=== PATIENT | female | born 1960 | race Caucasian/White ===

== ENCOUNTER 2019-04-15 21:12 | Emergency (ER) | payer MEDICARE | END 2019-04-15 22:30 | disposition home or self-care (01) | LOC: ERS 21:12 | DX: J20.9 Acute bronchitis, unspecified (principal); F17.210 Nicotine dependence, cigarettes, uncomplicated | CPT/HCPCS: 99283 ==

== ENCOUNTER 2019-05-23 17:55 | Emergency (ER) | payer MEDICARE ==
[~2019-05-23 17:55] MED LIST: ISOVUE-370 76%-LOCM 1 ML ONE
[2019-05-23] MEDS ORDERED: Ketorolac Tromethamine 30 MG/ML VIAL ONE (18:37)
[2019-05-23 18:53] LABS: #Lymphocytes 2.3 thou/uL (1.20-3.40); #Monocytes 0.5 thou/uL (0.11-0.59); #Neutrophils 4.8 thou/uL (1.40-6.50); %Basophils 0.5 % (0.0-1.0); %Eosinophils 0.4 % (0.0-10.0); %Lymphocytes 29.8 % (21.0-51.0); %Monocytes 6.3 % (0.0-10.0); Hemoglobin 13.8 g/dL (12.0-16.0); Mean Corpuscular Hemoglobin 33.2 pg (27.0-31.0); Mean Corpuscular Volume 97.5 fL (78.0-98.0); Mean Platelet Volume 8.9 fL (7.4-10.4); Platelet Count 241 thou/uL (130-400); RBC Distribution Width 12.3 % (11.5-14.5); Red Blood Cell (RBC) Count 4.16 mill/uL (4.20-5.40); White Blood Cell (WBC) Count 7.7 thou/uL (4.8-10.8)
[2019-05-23 19:16] LABS: ALT (SGPT) 22 U/L (8-55); AST (SGOT) 17 U/L (5-34); Albumin 4.3 g/dL (3.5-5.0); Alkaline Phosphatase 94 U/L (40-110); Anion Gap 16 mmol/L (10-20); BUN (Urea Nitrogen) 9 mg/dL (9.8-20.1); Bilirubin, Total 0.3 mg/dL (0.2-1.2); Calc. Creatinine Clearance 0 mL/min (70-130); Calcium 9.7 mg/dL (7.8-10.44); Carbon Dioxide 25 mmol/L (22-29); Chloride 103 mmol/L (98-107); Estimated GFR-MDRD 78; Glucose 89 mg/dL (70-105); Potassium 3.7 mmol/L (3.5-5.1); Protein, Total 7.3 g/dL (6.0-8.3); Sodium 140 mmol/L (136-145)
--- NOTE | 2019-05-23 19:21 | RAD ---
PORTABLE CHEST: 05/23/19 HISTORY: Cough and back pain. Heart size and mediastinum are within normal limits. The lungs are clear of infiltrates. No significa nt bony findings. IMPRESSION: No active intrathoracic disease. POS: [facility]
[2019-05-23 19:25] LABS: Bacteria/HPF None Seen HPF (None Seen); Bilirubin Negative (Negative); Blood, Urine Negative (Negative); Clarity Clear (Clear); Glucose, Urine (Dipstick) Normal (Negative); Leukocyte 25 Leu/uL (Negative); Nitrite Negative (Negative); Protein, Urine (Dipstick) Negative (Neg-Trace); RBC/HPF 0-3 HPF (0-3); Squamous Epithelial 0-3 HPF (0-3); Urobilinogen Normal mg/dL (Less than 2); WBC/HPF 0-3 HPF (0-3)
[2019-05-23] MEDS ORDERED: traMADol HCl 50 MG TAB ONE (20:49)
--- NOTE | 2019-05-23 20:57 | CT ---
CT angiogram of chest and abdomen performed with intravenous contrast enhancement with 3-D reconstruc tions HISTORY: Mid back pain. COMPARISON: None. FINDINGS: The lungs show a mixture of groundglass opacity and areas which appear to represent air tra pping. No confluent infiltrative process is seen. No pleural effusion. No significant mediastinal or hilar adenopathy. The pulmonary arteries are fairly well opacified and show no evidence for pulmonary embolus. The thoracic aorta is normal in caliber. A small hiatal hernia is present. The liver spleen and pancreas regions appear unremarkable on this a ngiographic phase exam. The gallbladder has been removed. The right and left adrenal glands are normal. There is cortical scarring involving the left kidney. No obstruction. The abdominal aorta is normal in caliber no dissection. No stenosis. The superior mesenteric and infe rior mesenteric arteries are patent without stenosis. The celiac artery is normal. Renal arteries are also unremarkable. IMPRESSION: No evidence of aortic aneurysm or dissection
== END 2019-05-23 22:00 | disposition home or self-care (01) ==
LOC: ERS 17:55
DX: J18.9 Pneumonia, unspecified organism (principal); F41.9 Anxiety disorder, unspecified; F32.9 Major depressive disorder, single episode, unspecified; F43.10 Post-traumatic stress disorder, unspecified; F17.210 Nicotine dependence, cigarettes, uncomplicated
CPT/HCPCS: 36415; 71045; 71275; 72191; 74175; 80053; 81003; 81015; 85025; 96372; J1885; Q9966

== ENCOUNTER 2019-06-18 10:03 | Outpatient (CLI) | payer MEDICARE ==
--- NOTE | 2019-06-18 10:42 | BD ---
EXAM: DEXA bone density examination HISTORY: 59-year-old postmenopausal female for screening COMPARISON: None FINDINGS: L1--bone mineral density 0.894 g/sq cm; T score -0.9 L2--bone mineral density 0.956 g/sq cm; T score -0.7 L3--bone mineral density 0.940 g/sq cm; T score -1.3 L4--bone mineral density 0.893 g/sq cm; T score -1.5 Total L1-L4--bone mineral density 0.921 g/sq cm; T score -1.1 Left femoral neck--bone mineral density0.789; T score -0.5 Total proximal left femur--bone mineral density 1.004; T score 0.5 IMPRESSION: Osteopenia.
--- NOTE | 2019-06-30 16:23 | MMO ---
Bilateral MAMMO Bilat Screen [facility]. CLINICAL HISTORY: Patient is 59 years old and is seen for screening. The patient has the following family history of breast cancer: maternal aunt, malignant (generic) and paternal aunt, malignant (generic). The patient has no personal history of cancer. VIEWS: The views performed were: bilateral craniocaudal with tomosynthesis; bilateral mediolateral oblique with tomosynthesis; and right craniocaudal. FILMS COMPARED: The present examination has been compared to a prior imaging study performed at [facility] on 04/09/2015. This study has been interpreted with the assistance of computer-aided detection. MAMMOGRAM FINDINGS: There are scattered fibroglandular densities. There are no suspicious masses, suspicious calcifications, or new areas of architectural distortion. IMPRESSION: THERE IS NO MAMMOGRAPHIC EVIDENCE OF MALIGNANCY. A ROUTINE FOLLOW-UP MAMMOGRAM IN 1 YEAR IS RECOMMENDED. THE RESULTS OF THIS EXAM WERE SENT TO THE PATIENT. ACR BI-RADS Category 1 - Negative MAMMOGRAPHY NOTE: 1. A negative mammogram report should not delay a biopsy if a dominant of clinically suspicious mass is present. 2. Approximately 10% to 15% of breast cancers are not detected by mammography. 3. Adenosis and dense breasts may obscure an underlying neoplasm. Reported by: SHAWN SHORT MD Electonically Signed: [id number]
== END 2019-06-18 10:04 | disposition home or self-care (01) ==
LOC: BICMAMMO 10:03
PROVIDERS: ATTEND Family Medicine
DX: Z12.31 Encounter for screening mammogram for malignant neoplasm of breast (principal); Z13.820 Encounter for screening for osteoporosis; M85.80 Other specified disorders of bone density and structure, unspecified site; Z80.3 Family history of malignant neoplasm of breast
CPT/HCPCS: 77063; 77067; 77080

== ENCOUNTER 2019-06-27 08:30 | Outpatient (CLI) | payer MEDICARE ==
--- NOTE | 2019-06-27 11:07 | RAD ---
THORACIC SPINE THREE VIEWS: HISTORY: Back pain. FINDINGS: No fracture, subluxation or bony destruction is seen. There are mild degenerative changes in the thor acic spine. POS: [facility]
== END 2019-06-27 08:31 | disposition home or self-care (01) ==
LOC: BICRAD 08:30
PROVIDERS: ATTEND Family Medicine
DX: M54.9 Dorsalgia, unspecified (principal); M47.814 Spondylosis without myelopathy or radiculopathy, thoracic region
CPT/HCPCS: 36415; 72070; 80053; 80061; 86803

== ENCOUNTER 2020-08-03 10:05 | Observation (INO) | payer MEDICARE ==
--- NOTE | 2020-08-03 10:41 | RAD ---
XR Chest 1 View Portable History: Chest pain Comparison: Radiograph 2019 Findings: Lungs are clear. No pneumothorax or effusion. Cardiac silhouette and mediastinal contours a re within normal limits. No acute osseous abnormality. Impression: No acute intrathoracic abnormality.
[2020-08-03 10:45] LABS: #Basophils 0.1 thou/uL (0.0-0.2); #Lymphocytes 2.4 thou/uL (1.20-3.40); #Monocytes 0.5 thou/uL (0.11-0.59); #Neutrophils 3.6 thou/uL (1.40-6.50); %Eosinophils 0.4 % (0.0-10.0); %Monocytes 6.9 % (0.0-10.0); %Neutrophils 54.7 % (42.0-75.0); Mean Corpuscular HGB CONC 32.8 g/dL (32.0-36.0); Mean Corpuscular Hemoglobin 32.4 pg (27.0-31.0); Mean Corpuscular Volume 98.9 fL (78.0-98.0); Mean Platelet Volume 8.6 fL (7.4-10.4); Platelet Count 230 thou/uL (130-400); RBC Distribution Width 11.8 % (11.5-14.5); Red Blood Cell (RBC) Count 4.32 mill/uL (4.20-5.40); White Blood Cell (WBC) Count 6.5 thou/uL (4.8-10.8)
[2020-08-03 11:13] LABS: ALT (SGPT) 21 U/L (8-55); AST (SGOT) 12 U/L (5-34); Alkaline Phosphatase 106 U/L (40-110); Anion Gap 13 mmol/L (10-20); BUN (Urea Nitrogen) 8 mg/dL (9.8-20.1); Bilirubin, Total 0.2 mg/dL (0.2-1.2); Calc. Creatinine Clearance 0 mL/min (70-130); Carbon Dioxide 26 mmol/L (22-29); Chloride 106 mmol/L (98-107); Globulin 2.7 g/dL (2.4-3.5); Glucose 80 mg/dL (70-105); Potassium 4.2 mmol/L (3.5-5.1); Protein, Total 6.7 g/dL (6.0-8.3)
[2020-08-03] MEDS ORDERED: Aspirin Chewable 81 MG TAB ONE (11:23)
[2020-08-03] MEDS ORDERED: Acetaminophen 500 MG TAB ONE (11:23)
[2020-08-03] MEDS ORDERED: Nitroglycerin 2% Ointment 1 INCH/1 GM Packet ONE (11:23)
[2020-08-03 11:37] LABS: Sodium 141 mmol/L (136-145)
[2020-08-03] MEDS ORDERED: Senokot S 8.6-50 MG TAB PO PRN (13:23)
[2020-08-03] MEDS ORDERED: Ondansetron ODT 4 MG TAB PO PRN (13:23)
--- NOTE | 2020-08-03 14:42 | HP ---
CHIEF COMPLAINT: Chest pain. HISTORY OF PRESENT ILLNESS: A 60-year-old female with a past medical history of PTSD, presenting with the chest pain of three day duration. Mostly sharp in quality. Associated with nausea. No emesis. The patient does have a history of hot flashes. She had a similar episode of chest pain in June 2019 and stress test done which was negative at that time. The pain is mostly in the center of her chest radiating to the side of her neck and shoulder. No recent fever, night sweats, chills, productive cough. No sick exposure. She is a daily smoker about a pack a day. Her initial evaluation showed troponin is negative. EKG showed normal sinus rhythm. The patient received aspirin and nitroglycerin in the ER. The patient will be brought in for risk stratification. REVIEW OF SYSTEMS: 13-point review of systems reviewed with the patient and pertinence addressed in the history of present illness. The rest are negative including no recent fever, chills, productive cough. No abdominal pain, constipation, diarrhea, hematuria, dysuria, or hematochezia. Denies headache, tingling, numbness, weakness in her extremities. No polyuria or polydipsia. No rash. PAST MEDICAL HISTORY: PTSD and anxiety. SURGICAL HISTORY: Colectomy and hysterectomy, history of ectopic . PSYCHIATRIC HISTORY: PTSD, anxiety, depression. She was admitted for an inpatient psych evaluation in 2016. She smokes at least a pack a day. Drinks occasionally. 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 FAMILY HISTORY: Noncontributory. ALLERGIES: SHE IS ALLERGIC TO CODEINE AND SULFATE. PHYSICAL EXAMINATION: VITAL SIGNS: Her temperature is 98.8, pulse 65, blood pressure 135/75, saturating 99% on room air. GENERAL: The patient is alert, oriented, nontoxic appearing. HEENT: Pupils are equal, round, and reactive to light. Anicteric. Mucous membranes moist. CARDIOVASCULAR: Regular rate and rhythm without murmurs, rubs, or gallops. LUNGS: Clear to auscultation bilaterally without wheezing, rales, or rhonchi. ABDOMEN: Soft, nontender, nondistended. Good bowel sounds. EXTREMITIES: Without pitting edema. NEUROLOGICAL: No focal deficits. PSYCHIATRIC: Appropriate mood and affect. DIAGNOSTIC STUDIES: EKG showed sinus bradycardia at 54 beats per minute. No ST-T wave changes. IMPRESSION AND PLAN: This is a 60-year-old female without significant past medical history of PTSD, presenting with chest pain. She will be ruled out with serial troponin, TSH, ANC, lipid panel. Daily aspirin. Follow up with lipid panel. Nuclear medicine stress test in the morning. Keep her n.p.o. after midnight. Job ID: [id number] MTDD
[2020-08-03 15:11] LABS: Troponin I Less than 0.010 ng/mL (< 0.028)
[2020-08-03 15:22] VITALS: BMI 32.8
[2020-08-03 16:53] LABS: Troponin I Less than 0.010 ng/mL (< 0.028)
[2020-08-03] MEDS: Acetaminophen 325 MG TAB PO PRN (16:54)
[2020-08-03] MEDS ORDERED: busPIRone HCl 10 MG TAB PO PRN (18:57)
[2020-08-03] MEDS ORDERED: Melatonin 3 MG TAB PO PRN (18:58)
[2020-08-03] MEDS: buPROPion 75 MG TAB PO SCH (20:28)
[2020-08-04] MEDS: Acetaminophen 325 MG TAB PO PRN (04:57)
[2020-08-04 05:43] LABS: #Basophils 0.1 thou/uL (0.0-0.2); #Lymphocytes 2.6 thou/uL (1.20-3.40); #Monocytes 0.5 thou/uL (0.11-0.59); %Basophils 0.7 % (0.0-1.0); %Eosinophils 0.7 % (0.0-10.0); %Lymphocytes 35.7 % (21.0-51.0); %Monocytes 7.5 % (0.0-10.0); %Neutrophils 55.4 % (42.0-75.0); Anion Gap 13 mmol/L (10-20); BUN (Urea Nitrogen) 17 mg/dL (9.8-20.1); Calc. Creatinine Clearance 102 mL/min (70-130); Calcium 9.1 mg/dL (7.8-10.44); Carbon Dioxide 28 mmol/L (22-29); Cardiac Risk 5.2 (Less than 4.5); Chloride 104 mmol/L (98-107); Cholesterol 213 mg/dl (< 200 Desired); Glucose 91 mg/dL (70-105); HDL Cholesterol 41 mg/dL (>60 Neg Risk); Hemoglobin 12.9 g/dL (12.0-16.0); LDL Cholesterol, Calculated 139 mg/dL; Mean Corpuscular HGB CONC 33.3 g/dL (32.0-36.0); Mean Corpuscular Hemoglobin 32.9 pg (27.0-31.0); Mean Corpuscular Volume 98.7 fL (78.0-98.0); Mean Platelet Volume 8.8 fL (7.4-10.4); Platelet Count 209 thou/uL (130-400); Potassium 4.8 mmol/L (3.5-5.1); Red Blood Cell (RBC) Count 3.93 mill/uL (4.20-5.40); Sodium 140 mmol/L (136-145); Triglycerides 164 mg/dL (Less than 150); White Blood Cell (WBC) Count 7.2 thou/uL (4.8-10.8)
[2020-08-04 06:06] LABS: SARS-CoV-2 MS2 Positive; SARS-CoV-2 N Gene Negative; SARS-CoV-2 S Gene Negative; SARS-CoV-2 by NAA Not Detected (NotDetected); SARS-CoV-2 orf1ab Negative
[2020-08-04] MEDS ORDERED: Aspirin 81 mg Enteric Coated Tablet PO SCH (09:00)
[2020-08-04] MEDS ORDERED: ADENOSINE 60 MG/20 ML VIAL ONE (10:00)
--- NOTE | 2020-08-04 11:20 | NM ---
Exam: Nuclear medicine cardiac stress with wall motion HISTORY: Chest pain TECHNIQUE: Patient was administered 32.50 mCi of technetium 99m sestamibi intravenously Cardiac gating is performed FINDINGS: Stress only images demonstrate homogeneous distribution of the radiotracer End-diastolic volume is 75 mL End-systolic volume is 20 mL Cardiac gating: Normal wall motion and thickening. 73% ejection fraction IMPRESSION: 1. Homogeneous distribution of radiotracer 2. 73% ejection fraction
--- NOTE | 2020-08-04 11:27 | PDOC.DS.DS ---
Provider - Provider Date of Admission: 08/03/20 15:04 Date of Discharge: 08/04/20 Admitting Provider: Lavon Handley MD Primary Care Physician: Kelsey Franz Course - Hospital Course Hospital Course: Patient is a 60 year old female with a PMH of tobacco smoking, obesity, PTSD and anxiety disorder. She was admitted for ACS work up after she presented with chest pain. She underwent a nuclear stress test, which ruled out any active obstructive disease. Her LVEF was 73%. Due to her high 10-year cardiovascular disease risk, I will go ahead and discharge her on moderate intensity statin, along with low dose aspirin. - Labs Lab Results: 08/04/20 04:26 08/04/20 04:26 Abnormal Lab Results - Last 48 hrs 08/03/20 10:24: BUN 8 L 08/03/20 10:24: MCV 98.9 H, MCH 32.4 H 08/04/20 04:26: Triglycerides 164 H, Cholesterol 213 H 08/04/20 04:26: RBC 3.93 L, MCV 98.7 H, MCH 32.9 H - Physical Exam Vitals: Vital Signs (12 hours) Temp Pulse Resp BP Pulse Ox 08/04/20 07:10 97.7 F 48 L 17 114/59 L 98 Weight Weight 185 lb 3.2 oz Physical Exam: The patient was seen and examined on the day of discharge. General: alert and awake, in no acute distress HEENT: AT/NC. EOMi Pulm: lungs are CTA, b/l. No wheezing or crackles CVS: Normal S1S2. RRR Abdomen: soft, NT, ND. Ext: w/o edema. Good ROM in all 4 extremities Skin: warm and well perfused Psych: mood and affect appropriate Problem - Discharge Plan Assessment: Please refer to clinical course Plan - Discharge Medications Prescriptions: Aspirin [Ecotrin Low Strength] 81 mg PO DAILY #30 tab Atorvastatin Calcium [Lipitor] 20 mg PO HS #30 tab Home Medications: Medication Instructions Recorded Confirmed Type Melatonin 10 mg PO HS PRN 08/03/20 08/03/20 History buPROPion [Wellbutrin] 75 mg PO BID 08/03/20 08/03/20 History busPIRone HCl [Buspar] 10 mg PO DAILY PRN 08/03/20 08/03/20 History Aspirin [Ecotrin Low Strength] 81 mg PO DAILY #30 tab 08/04/20 Rx Atorvastatin Calcium [Lipitor] 20 mg PO HS #30 tab 08/04/20 Rx Melatonin 9 mg PO HSPRN PRN tab 08/04/20 Rx buPROPion [Wellbutrin] 75 mg PO BID tab 08/04/20 Rx busPIRone HCl [Buspar] 10 mg PO DAILYPRN PRN tab 08/04/20 Rx Allergies: codeine Allergy (Verified 08/03/20 15:20) meperidine [From Demerol] Allergy (Verified 08/03/20 15:20) morphine Allergy (Verified 08/03/20 15:20) - Follow up Plan Referrals: Kelsey Hernandez PA [Primary Care Provider] - Disposition: HOME Quality - Care Measures CORE MEASURES:: N/A - Stroke/TIA Did you prescribe antithrombotic therapy?: Yes
[2020-08-04] MEDS: buPROPion 75 MG TAB PO SCH (11:29)
[2020-08-04 11:32] VITALS: BP 117/77; TEMP 99.1
[2020-08-04] MEDS ORDERED: Atorvastatin Calcium 20 MG TAB PO SCH (21:00)
--- NOTE | 2020-08-07 14:01 | EKG ---
Test Reason : ANXIETY, CP Blood Pressure : / mmHG Vent. Rate : 054 BPM Atrial Rate : 054 BPM P-R Int : 208 ms QRS Dur : 090 ms QT Int : 424 ms P-R-T Axes : 045 002 045 degrees QTc Int : 402 ms Sinus bradycardia Low voltage QRS Borderline ECG Confirmed by ANGELICA MCCARTNEY DO ([id number]), assistant editor TATO JIMENEZ ([id number]) on 08/07/2020 2:00:44 PM Referred By: Confirmed By:ANGELICA MCCARTNEY DO
== END 2020-08-04 12:55 | disposition home or self-care (01) ==
LOC: ERS 10:05 → 2NO 15:04
PROVIDERS: ADMIT Internal Medicine; ATTEND Internal Medicine
DX: R07.9 Chest pain, unspecified (principal); E66.9 Obesity, unspecified; F43.10 Post-traumatic stress disorder, unspecified; F41.9 Anxiety disorder, unspecified; F32.9 Major depressive disorder, single episode, unspecified; F17.210 Nicotine dependence, cigarettes, uncomplicated; Z68.32 Body mass index [BMI] 32.0-32.9, adult; Z79.899 Other long term (current) drug therapy; Z88.5 Allergy status to narcotic agent; Z88.8 Allergy status to other drugs, medicaments and biological substances; Z20.822 Contact with and (suspected) exposure to COVID-19
CPT/HCPCS: 71045; 78452; 80048; 80061; 83036; 84484 ×2; 85025; 85379; 93005; 93017; 99285; A9500; G0378 ×3; U0003; 36415; 80053; 84443; 87635

== ENCOUNTER 2021-03-29 14:38 | Outpatient (CLI) | payer MEDICARE | END 2021-03-29 14:39 | disposition home or self-care (01) | LOC: BICRAD 14:38 | PROVIDERS: ATTEND Family Medicine | DX: M54.6 Pain in thoracic spine (principal) | CPT/HCPCS: 72072 ==